=== PATIENT | female | born 1970 | race Two or more races ===

== ENCOUNTER → 2024-08-10 | Outpatient (CLI) | payer MEDICAID, SELFPAY ==
--- NOTE | 2024-08-10 13:30 | XR_ITS ---
Examination: Retroperitoneal ultrasound, complete Technique: Multiple high resolution grayscale images of the retroperitoneum obtained, including kidneys and bladder. Exam date and time:August 10, 2024 1327 hours INDICATIONS: Hematuria episodes beginning 3 months ago FINDINGS: Right kidney 9.9 cm cortex 2.4 cm 6 mm midpole calculus Mild hydronephrosis Left kidney 10.1 cm cortex 1.9 cm 8 mm lower pole calculus Mild bilateral renal parenchymal scar formation Contracted urinary bladder IMPRESSION: Bilateral renal calculi Mild right hydronephrosis
== END | disposition home or self-care (01) ==
LOC: CDIM 13:09
PROVIDERS: PCP Specialist; Referring Provider Specialist; Visit Provider Specialist
DX: N20.0 Calculus of kidney (principal); N13.30 Unspecified hydronephrosis
CPT/HCPCS: 76770

== ENCOUNTER → 2024-11-27 | Outpatient (CLI) | payer MEDICAID, SELFPAY ==
--- NOTE | 2024-11-27 14:00 | XR_ITS ---
Examination: MRI brain without intravenous contrast. Date and time of exam: November 27, 2024, 1533 hrs. Indications: Headaches and dizziness episodes beginning one year ago Technique: Multiple axial and sagittal images of the brain obtained. Siemens high-resolution 1.5 Yee short bore scanners utilized. Sagittal sections, T1-weighted, TR 500, TE 14, are performed. Axial sections proton-density and T2-weighted have been obtained. Inversion recovery axial images, TR 9, 260, TE 111, TI 2500. Diffusion weighted images, axial sections, TR 4800, TE 128, B value 1000 Axial sections, ADC map, TR 4800, TE 128 Findings: Enlargement of the sella turcica is not present. The optic chiasm and infundibular are not remarkable. Prepontine and interpeduncular cisterns are not enlarged. There is no localized enlargement of the medulla or dylan. Fourth ventricle and cerebellar tonsils appear normal in position. No subacute area of hemorrhage density is seen. Mass in the cerebellopontine angle region is not evident. Globes symmetrical. Orbital musculature including medial lateral rectus muscles do not exhibit abnormality. Diffusion-weighted images demonstrate no focus of restricted diffusion.. Increased white matter signal not seen Mass effect upon the ventricular system is not identified. Impression: Negative for acute hemorrhage, mass effect or midline shift. No acute infarct. No MR findings diagnostic for demyelinating disease.
== END | disposition home or self-care (01) ==
LOC: SMRI 13:31
PROVIDERS: PCP Specialist; Referring Provider Physician Assistant; Visit Provider Physician Assistant
DX: R55 Syncope and collapse (principal)
CPT/HCPCS: 70551

== ENCOUNTER → 2025-01-14 | Outpatient (CLI) | payer MEDICAID, SELFPAY ==
--- NOTE | 2025-01-14 11:30 | XR_ITS ---
Examination: CT abdomen and pelvis without contrast. Coronal 3-D reconstructions. Sagittal 2-D reconstructions. Date and time of exam: January 14, 2025, 11:00 a.m. INDICATIONS: Right side abdominal pain beginning 2 months ago CTDI: vol (mGy): 6.85 DLP: (mGycm): 394 Technique: Axial images of the abdomen have been obtained, 3 mm slice thickness Intravenous contrast material has not been administered. Low dose protocols were performed. One or more of the following dose reduction techniques were used; automated exposure control, adjustment of the mA and/or KV according to patient size, use of iterative reconstruction technique. Findings: No focal liver or splenic lesions Absent gallbladder No pancreatic or adrenal mass No renal or ureteral calculi, no hydronephrosis Abundant stool in the cecum and right colon No diverticulitis Normal appendix Large solid mass in the pelvis, 17 x 10 x 16 cm which may all be uterus Contracted urinary bladder Moderate disc narrowing L4-L5, L5-S1 IMPRESSION: Large solid mass in the pelvis 17 x 10 x 16 cm which appears to be uterus, recommend transvaginal transabdominal pelvic sonography follow-up
== END | disposition home or self-care (01) ==
LOC: CCTX 10:49
PROVIDERS: PCP Specialist; Referring Provider Surgery; Visit Provider Surgery
DX: N20.0 Calculus of kidney (principal); R19.00 Intra-abdominal and pelvic swelling, mass and lump, unspecified site
CPT/HCPCS: 74176